=== PATIENT | male | born 1950 | race Two or more races ===

== ENCOUNTER 2022-01-29 14:51 | Inpatient (IN) | payer OTHER ==
[~2022-01-29] VITALS: Ht 99.1 cm; Wt 45.4 kg
[2022-01-29] MEDS ORDERED: ADULT LOW DOSE81 M1 PO (15:08)
[2022-01-29] MEDS ORDERED: ZESTRIL10 M1 PO (15:08)
[2022-01-29] MEDS ORDERED: COZAAR25 MG PO (15:09)
[2022-01-29] MEDS ORDERED: LIPOFEN150 MG PO (15:09)
[2022-01-29] MEDS ORDERED: LEVO-T25 MCG PO (15:09)
[2022-01-30] MEDS ORDERED: FLEET BISACODYL5 MG (08:25)
[2022-02-02] MEDS ORDERED: MIRALAX510 GM PO (10:43)
[2022-02-02] MEDS ORDERED: PERCOCET 5-3251 EACH PO (10:43)
== END 2022-02-02 12:25 | disposition home or self-care (01) | DRG 349 ==
LOC: ER 14:51 → SURH 01-30 08:15 → SURG 01-30 08:15 → SURH 01-30 08:33
PROVIDERS: ADMIT Surgery; ATTEND Surgery
PROC: 06BY0ZC Excision of Hemorrhoidal Plexus, Open Approach (ICD-10-PCS; principal; 2022-02-01 08:00)
DX: K64.5 Perianal venous thrombosis (principal); I10 Essential (primary) hypertension; Z20.822 Contact with and (suspected) exposure to COVID-19